=== PATIENT | female | born 1995 | race Caucasian/White ===

== ENCOUNTER 2017-09-19 19:55 | Outpatient (CLI) | payer SELFPAY ==
[2017-09-19 20:17] VITALS: BP 117/67
[2017-09-19 20:35] VITALS: BP 118/70
[2017-09-19 20:55] VITALS: BP 113/69
[2017-09-19] MEDS ORDERED: PRENATAL TABLE1 EAC3 PO (21:17)
[2017-09-19] MEDS ORDERED: IRON 100 PLUS1 EACH PO (21:17)
== END 2017-09-19 21:15 | disposition home or self-care (01) ==
LOC: LDRP-OP 19:55 → 2WEST 19:56
DX: O99.613 Diseases of the digestive system complicating pregnancy, third trimester (principal); K21.9 Gastro-esophageal reflux disease without esophagitis; O99.343 Other mental disorders complicating pregnancy, third trimester; F41.9 Anxiety disorder, unspecified; Z3A.33 33 weeks gestation of pregnancy
CPT/HCPCS: 59025; G0378

== ENCOUNTER 2017-10-28 11:47 | Outpatient (CLI) | payer OTHER ==
[~2017-10-28 11:47] MED LIST: IRON 100 PLUS1 EACH PO; PRENATAL TABLE1 EAC3 PO
[2017-10-28 12:10] VITALS: BP 122/74
== END 2017-10-28 13:14 | disposition home or self-care (01) ==
LOC: LDRP-OP 11:47 → 2WEST 11:48 → LDRP-OP 12-03 21:54
DX: O47.1 False labor at or after 37 completed weeks of gestation (principal); Z3A.39 39 weeks gestation of pregnancy
CPT/HCPCS: 59025; G0378

== ENCOUNTER 2017-11-06 01:21 | Inpatient (IN) | payer OTHER ==
[~2017-11-06] VITALS: Ht 167.6 cm; Wt 72.3 kg
[2017-11-06] VITALS (29 sets, daily range): BP systolic 107–139; BP diastolic 55–83
[2017-11-06 02:54] LABS: BASOPHIL (%) 0.2 % (0-1); EOSINOPHIL (%) 0.5 % (0-5); EOSINOPHIL COUNT 0.1 K/uL (0-0.3); HEMATOCRIT 36.5 % (36.0-46.0); HEMOGLOBIN 12.6 G/DL (11.9-15.5); IMMATURE GRANULOCYTE (%) 0.5 % (0.0-0.7); LYMPHOCYTE (%) 18.6 % (15-42); LYMPHOCYTE COUNT 2.4 K/uL (1.0-2.8); MCH 31.7 PG (29.0-34.0); MCHC 34.5 G/DL (30.0-36.0); MCV 91.9 FL (83-99); MONOCYTE (%) 5.9 % (3-12); MONOCYTE COUNT 0.8 K/uL (0-0.8); NEUTROPHIL (%) 74.3 % (45-76); NEUTROPHIL COUNT 9.7 K/uL (1.8-6.4); PLATELET COUNT 150 K/uL (156-360); RBC DIS.WIDTH-CV 13.5 % (11.8-14.6); RBC DIS.WIDTH-SD 45.9 % (39-53); RED BLOOD COUNT 3.97 M/uL (3.80-5.20)
[2017-11-06 03:53] LABS: COCAINE NEGATIVE (150 ng/mL); METHAMPHETAMINE NEGATIVE (500 ng/mL); OPIATES (MORPHINE) NEGATIVE (100 ng/mL); PHENCYCLIDINE NEGATIVE (25 ng/mL); THC CANNABINOIDS NEGATIVE (50 ng/mL)
[2017-11-06 03:54] LABS: AMPHETAMINE NEGATIVE (500 ng/mL); BARBITURATES NEGATIVE (200 ng/mL); BENZODIAZEPINES NEGATIVE (150 ng/mL); BUPRENORPHINE NEGATIVE (10 ng/mL); METHADONE NEGATIVE (200 ng/mL); OXYCODONE NEGATIVE (100 ng/mL); PROPOXYPHENE NEGATIVE (300 ng/mL); TRICYCLIC ANTIDEPRESSANTS NEGATIVE (300 ng/mL)
[2017-11-06] MEDS ORDERED: IBUPROFEN800 MG PO (11:06)
[2017-11-07 07:37] VITALS: BP 115/61
[2017-11-07 14:35] VITALS: BP 115/64
== END 2017-11-07 20:45 | disposition home or self-care (01) | DRG 775 ==
LOC: LDRP-OP 01:21 → 2WEST 01:22 → LDRP-OP 12-04 14:04
PROVIDERS: Midwife
PROC: 3E0R3BZ Introduction of Anesthetic Agent into Spinal Canal, Percutaneous Approach (ICD-10-PCS; principal; 2017-11-06)
PROC: 10E0XZZ Delivery of Products of Conception, External Approach (ICD-10-PCS; principal; 2017-11-06)
PROC: 00HU33Z Insertion of Infusion Device into Spinal Canal, Percutaneous Approach (ICD-10-PCS; principal; 2017-11-06)
DX: O77.0 Labor and delivery complicated by meconium in amniotic fluid (principal); Z3A.40 40 weeks gestation of pregnancy; Z37.0 Single live birth
CPT/HCPCS: 85025; C1755; J0595; J1050; J3010; J7120